=== PATIENT | male | born 1960 | race Caucasian/White ===

== ENCOUNTER → 2016-11-07 | Day surgery (SDC) | payer OTHER ==
[~2016-11-07] MED LIST: CIPRO PO; MOBIC PO; RAPAFLO8 MG PO
--- NOTE | ~2016-11-07 | OR ---
Unit #: [id number] #: [id number] Patient: PEMA CARRIZALES [id number] [address] [place], [place] [address] [id number] O MR#: [id number] NAME: PEMA CARRIZALES ROOM: Date of Procedure: 11/07/2016 Admission Date: 11/07/2016 Surgeon: Yao Mccann M.D. : 1960 Attending Physician: Yao Mccann M.D. Primary Care Physician: Rene Case M.D. OPERATIVE REPORT PRIMARY CARE PHYSICIAN Rene Case M.D. PREOPERATIVE DIAGNOSIS Colorectal cancer screening in an average-risk patient. PROCEDURES PERFORMED 1. Colonoscopy and polypectomy. 2. Colonoscopy with submucosal injection. POSTOPERATIVE DIAGNOSES The patient had a large sessile polyp in the cecum. This was at least 2 cm in size. It was removed using snare cautery polypectomy after submucosal injection with methylcellulose and methylene blue. A second smaller polyp in the cecum was removed as well. This was about 6 mm in size. The patient had third polyp in the proximal ascending colon. This was about a 1 cm in size, also removed using snare polypectomy. Rest of the examination up to cecum was normal. The quality of the prep was good. RECOMMENDATIONS Follow up results of polyp histology and consider repeat examination of colon in 3 years. SEDATION USED MAC. DESCRIPTION OF PROCEDURE Following detailed explanation of potential risks and complications of a colonoscopy, namely perforation, bleeding, and complications related to sedation, the patient was brought to GI lab and laid in the left lateral decubitus position. A digital rectal examination was performed, which was normal. Lubricated tip of the Olympus video colonoscope was inserted through the anus and advanced under direct vision. The scope was advanced and passed up to sigmoid into descending colon. No diverticula were seen in this area. The scope tip was then navigated all the way up to cecum with visualization of the ileocecal valve and the appendiceal orifice. Preparation was excellent with good visualization and photodocumentation was obtained. Successive segments of the colonic mucosa were examined upon withdrawal. A large sessile polyp about 2 to 3 cm in size was seen in the cecum. This was true flat adenoma. It was removed after submucosal injection with methylcellulose and methylene blue and snare polypectomy. The polyp was retrieved and sent for histology. A second Unit #: [id number] #: [id number] Patient: PEMA CARRIZALES smaller polyp about 8 mm in size also seen in the cecum adjacent to appendiceal orifice and it was removed using snare polypectomy. A third polyp was present in the ascending colon. It was also removed using snare polypectomy, retrieved and sent for histology. No additional polyps noted. The patient did not have any diverticulosis nor any hemorrhoids. The scope was then withdrawn. The patient returned to the recovery area. He tolerated the procedure without any postprocedure complications. Dictated by... Roselia Tyler/nikhil TD: 11/07/2016 23:03 JOB #: [id number] OPERATIVE REPORT Page 1 of 1 X Yao Mccann MD X PROCEDURE OPERATIVE NOTE
== END | disposition home or self-care (01) ==
LOC: COPS 09:27
DX: Z12.11 Encounter for screening for malignant neoplasm of colon (principal); D12.0 Benign neoplasm of cecum; D12.2 Benign neoplasm of ascending colon; J44.9 Chronic obstructive pulmonary disease, unspecified; F17.210 Nicotine dependence, cigarettes, uncomplicated; Z79.899 Other long term (current) drug therapy; Z98.52 Vasectomy status; Z98.890 Other specified postprocedural states
CPT/HCPCS: 88305; J2250; Q9968